=== PATIENT | female | born 1935 | race Native Hawaiian/Other Pacific Islander ===

== ENCOUNTER 2016-06-11 09:33 | Outpatient (CLI) | payer OTHER ==
[~2016-06-11 09:33] MED LIST: CALCIUM600 M1 OR; CLOPIDOGREL75 MG PO; FURO20TA67 PO; LISI10TA11; POT CHLORIDE10 MEQ OR; SIMV40TA57
[2016-06-11 10:15] LABS: POTASSIUM 4.2 mmol/L (3.6-5.2)
[2016-06-11 11:05] LABS: PLATELET COUNT 209 K/uL (152-353)
== END 2016-06-12 01:59 | disposition home or self-care (01) ==
LOC: LABW 09:33
PROVIDERS: Internal Medicine
DX: I10 Essential (primary) hypertension (principal); N39.0 Urinary tract infection, site not specified
CPT/HCPCS: 36415; 80053; 80061; 81000; 84439; 84443; 85027; 87077; 87086; 87088; 87186

== ENCOUNTER 2016-06-19 09:04 | Outpatient (CLI) | payer OTHER | END 2016-06-19 19:39 | disposition home or self-care (01) | LOC: US 09:04 | DX: N39.0 Urinary tract infection, site not specified (principal) ==

== ENCOUNTER 2016-06-21 10:54 | Outpatient (CLI) | payer OTHER | END 2016-06-21 19:07 | disposition home or self-care (01) | LOC: RAD 10:54 | DX: J44.9 Chronic obstructive pulmonary disease, unspecified (principal) ==

== ENCOUNTER 2017-07-31 08:27 | Outpatient (CLI) | payer OTHER ==
[2017-07-31 08:46] LABS: PLATELET COUNT 209 K/uL (152-353)
[2017-07-31 08:54] LABS: POTASSIUM 4.2 mmol/L (3.6-5.2)
== END 2017-07-31 20:52 | disposition home or self-care (01) ==
LOC: LABW 08:27
PROVIDERS: Internal Medicine
DX: I10 Essential (primary) hypertension (principal); E11.9 Type 2 diabetes mellitus without complications; I25.10 Atherosclerotic heart disease of native coronary artery without angina pectoris
CPT/HCPCS: 36415; 80053; 80061; 81000; 82043; 82570; 83036; 84439; 84443; 85027

== ENCOUNTER 2018-01-27 09:43 | Outpatient (CLI) | payer OTHER | END 2018-01-27 19:17 | disposition home or self-care (01) | LOC: US 09:43 | DX: Z13.820 Encounter for screening for osteoporosis (principal); Z78.0 Asymptomatic menopausal state; Z13.6 Encounter for screening for cardiovascular disorders ==

== ENCOUNTER 2018-01-28 09:15 | Outpatient (CLI) | payer OTHER ==
[2018-01-28 09:36] LABS: PLATELET COUNT 182 K/uL (152-353)
[2018-01-28 10:00] LABS: POTASSIUM 4.3 mmol/L (3.6-5.2)
== END 2018-01-28 22:40 | disposition home or self-care (01) ==
LOC: LABW 09:15
PROVIDERS: Internal Medicine
DX: I10 Essential (primary) hypertension (principal); E11.9 Type 2 diabetes mellitus without complications; Z00.00 Encounter for general adult medical examination without abnormal findings; Z79.899 Other long term (current) drug therapy
CPT/HCPCS: 36415; 80053; 80061; 81000; 82043; 82570; 83036; 84439; 84443; 85027; 87077; 87086; 87088; 87186

== ENCOUNTER 2018-09-09 08:25 | Outpatient (CLI) | payer OTHER ==
[2018-09-09 08:47] LABS: PLATELET COUNT 234 K/uL (152-353)
[2018-09-09 09:07] LABS: POTASSIUM 4.2 mmol/L (3.6-5.2)
== END 2018-09-09 20:29 | disposition home or self-care (01) ==
LOC: LABW 08:25
PROVIDERS: Physician Assistant
DX: E11.9 Type 2 diabetes mellitus without complications (principal); I10 Essential (primary) hypertension; E55.9 Vitamin D deficiency, unspecified; E78.49 Other hyperlipidemia
CPT/HCPCS: 36415; 80053; 80061; 82306; 83036; 84439; 84443; 85027

== ENCOUNTER 2019-02-10 08:34 | Outpatient (CLI) | payer OTHER ==
[2019-02-10 09:17] LABS: POTASSIUM 4.2 mmol/L (3.6-5.2)
[2019-02-10 09:48] LABS: PLATELET COUNT 211 K/uL (152-353)
== END 2019-02-10 20:14 | disposition home or self-care (01) ==
LOC: LABW 08:34 → RAD 09:00 → LABW 20:14
PROVIDERS: Internal Medicine
DX: Z00.00 Encounter for general adult medical examination without abnormal findings (principal); Z13.820 Encounter for screening for osteoporosis; N95.8 Other specified menopausal and perimenopausal disorders; I10 Essential (primary) hypertension; E11.9 Type 2 diabetes mellitus without complications
CPT/HCPCS: 36415; 80053; 80061; 81000; 84443; 85027

== ENCOUNTER 2020-01-05 09:52 | Outpatient (CLI) | payer OTHER | END 2020-01-05 20:27 | disposition home or self-care (01) | LOC: RAD 09:52 | DX: U07.1 COVID-19 (principal); J12.89 Other viral pneumonia | CPT/HCPCS: 36415; 86769 ==

== ENCOUNTER 2020-03-22 09:03 | Outpatient (CLI) | payer OTHER ==
[2020-03-22 09:43] LABS: PLATELET COUNT 170 K/uL (152-353)
[2020-03-22 10:00] LABS: POTASSIUM 4.9 mmol/L (3.6-5.2)
== END 2020-03-22 19:53 | disposition home or self-care (01) ==
LOC: LABW 09:03
PROVIDERS: ATTEND Internal Medicine
DX: E11.9 Type 2 diabetes mellitus without complications (principal); J44.9 Chronic obstructive pulmonary disease, unspecified; R49.0 Dysphonia
CPT/HCPCS: 36415; 80053; 80061; 81000; 82043; 82570; 83036; 84439; 84443; 85027

== ENCOUNTER 2020-07-28 11:01 | Emergency (ER) | payer OTHER ==
[~2020-07-28] VITALS: Ht 165.1 cm; Wt 79.4 kg
[2020-07-28] VITALS (8 sets, daily range): BP systolic 120–173; BP diastolic 49–77; TEMP 98
[2020-07-28 11:45] LABS: PLATELET COUNT 179 K/uL (152-353)
[2020-07-28 11:47] LABS: POTASSIUM 4.1 mmol/L (3.6-5.2); SODIUM 135 mmol/L (136-145)
== END 2020-07-28 19:34 | disposition still patient (30) ==
LOC: ED 11:01 → MED/SURG 12:40 → ED 19:34
PROVIDERS: Hospitalist
DX: E11.9 Type 2 diabetes mellitus without complications (principal); E86.0 Dehydration; R55 Syncope and collapse; K83.1 Obstruction of bile duct; Z03.818 Encounter for observation for suspected exposure to other biological agents ruled out; R35.0 Frequency of micturition
CPT/HCPCS: 80053; 81000; 81002; 82550; 82948; 83880; 84484; 85027; 85610; 85730; 87077; 87086; 87088; 87186; 87635; 93005; 96360; 96365; 96375; 99284; A9576; J1956; U0003

== ENCOUNTER 2020-09-28 09:14 | Outpatient (CLI) | payer OTHER | END 2020-09-28 22:19 | disposition home or self-care (01) | LOC: MAMMO 09:14 | PROVIDERS: ATTEND Internal Medicine | DX: Z12.31 Encounter for screening mammogram for malignant neoplasm of breast (principal); Z13.820 Encounter for screening for osteoporosis; N95.8 Other specified menopausal and perimenopausal disorders ==

== ENCOUNTER 2020-10-25 08:43 | Outpatient (CLI) | payer OTHER ==
[2020-10-25 09:41] LABS: POTASSIUM 4.1 mmol/L (3.6-5.2)
== END 2020-10-25 21:51 | disposition home or self-care (01) ==
LOC: LABW 08:43
PROVIDERS: ATTEND Internal Medicine
DX: E11.9 Type 2 diabetes mellitus without complications (principal); E78.49 Other hyperlipidemia
CPT/HCPCS: 80053; 80061; 83036

== ENCOUNTER 2020-11-07 12:23 | Outpatient (CLI) | payer OTHER | END 2020-11-07 21:04 | disposition home or self-care (01) | LOC: RAD 12:23 | PROVIDERS: ATTEND Internal Medicine | DX: R09.1 Pleurisy (principal) ==

== ENCOUNTER 2021-04-27 07:56 | Outpatient (CLI) | payer OTHER ==
[2021-04-27 09:58] LABS: PLATELET COUNT 176 K/uL (152-353)
[2021-04-27 10:02] LABS: POTASSIUM 4.5 mmol/L (3.6-5.2)
== END 2021-04-27 18:50 | disposition home or self-care (01) ==
LOC: LABW 07:56
PROVIDERS: ATTEND Internal Medicine
DX: E11.9 Type 2 diabetes mellitus without complications (principal); G25.2 Other specified forms of tremor; R82.998 Other abnormal findings in urine
CPT/HCPCS: 36415; 80053; 80061; 81000; 83036; 84439; 84443; 85027; 87077; 87086; 87088; 87186

== ENCOUNTER 2022-01-24 11:58 | Outpatient (CLI) | payer OTHER ==
[2022-01-24 13:42] LABS: PLATELET COUNT 215 K/uL (152-353)
[2022-01-24 14:43] LABS: POTASSIUM 4.8 mmol/L (3.6-5.2)
== END 2022-01-24 19:34 | disposition home or self-care (01) ==
LOC: LAB 11:58
PROVIDERS: ATTEND Internal Medicine
DX: E11.9 Type 2 diabetes mellitus without complications (principal); I10 Essential (primary) hypertension; I25.10 Atherosclerotic heart disease of native coronary artery without angina pectoris; E78.49 Other hyperlipidemia; J44.9 Chronic obstructive pulmonary disease, unspecified
CPT/HCPCS: 80053; 80061; 83036; 84439; 84443; 85027

== ENCOUNTER 2022-05-07 11:54 | Outpatient (CLI) | payer OTHER | END 2022-05-07 19:24 | disposition home or self-care (01) | LOC: LAB 11:54 | PROVIDERS: ATTEND Internal Medicine | DX: L97.929 Non-pressure chronic ulcer of unspecified part of left lower leg with unspecified severity (principal) | CPT/HCPCS: 87070; 87205 ==

== ENCOUNTER 2022-11-07 16:32 | Outpatient (CLI) | payer OTHER | END 2022-11-07 21:06 | disposition home or self-care (01) | LOC: LAB 16:32 | PROVIDERS: ATTEND Internal Medicine | DX: N39.0 Urinary tract infection, site not specified (principal) | CPT/HCPCS: 87077; 87086; 87088; 87185 ==

== ENCOUNTER 2022-11-27 14:41 | Outpatient (CLI) | payer OTHER ==
[2022-11-27 15:25] LABS: POTASSIUM 4.5 mmol/L (3.6-5.2)
[2022-11-27 15:26] LABS: PLATELET COUNT 196 K/uL (152-353)
== END 2022-11-27 18:59 | disposition home or self-care (01) ==
LOC: LAB 14:41
PROVIDERS: ATTEND Internal Medicine
DX: E11.9 Type 2 diabetes mellitus without complications (principal)
CPT/HCPCS: 80053; 81002; 83036; 84439; 84443; 85027

== ENCOUNTER 2023-05-29 12:21 | Outpatient (CLI) | payer OTHER | END 2023-05-29 19:05 | disposition home or self-care (01) | LOC: LAB 12:21 | PROVIDERS: ATTEND Internal Medicine | DX: N39.0 Urinary tract infection, site not specified (principal) | CPT/HCPCS: 87077; 87086; 87088; 87186 ==